=== PATIENT | female | born 1990 | race Hispanic/Latino ===

== ENCOUNTER 2019-08-10 17:49 | Emergency (ER) | payer BC ==
[~2019-08-10 17:49] MED LIST: FERS325 PO; LEVO175T9 PO
[2019-08-10] MEDS ORDERED: SODIUM CHLORIDE 0.9% 1000ML 1,000 ML IV ONE (17:50)
[2019-08-10] MEDS ORDERED: ACETAMINOPHEN EXTRA STRENGTH 500 MG TABLET ONE (19:26)
[2019-08-10 20:03] LABS: BASOPHILS % (AUTO) 0.2 % (0.0-5.0); HEMATOCRIT 41.9 % (36-48); LYMPHOCYTES % (AUTO) 24.4 % (21.0-51.0); MEAN CORPUSCULAR HGB CONC 35.6 g/dL (32.0-36.0); MEAN CORPUSCULAR VOLUME 84.5 fL (79-99); MONOCYTES % (AUTO) 7.4 % (3.0-13.0); NEUTROPHILS % (AUTO) 67.6 % (40.0-77.0); PLATELET COUNT (AUTO) 125 K/uL (130-400); RED BLOOD CELL COUNT(AUTO) 4.96 MIL/uL (4.00-5.50); RED CELL DISTRIBUTION WIDTH 12.7 % (11.0-15.5); WHITE BLOOD COUNT (AUTO) 5.7 K/uL (4.8-10.8)
[2019-08-10 20:05] LABS: APPEARANCE,URINE Clear (CLEAR); BILIRUBIN,URINE Negative (NEGATIVE); COLOR,URINE Yellow (YELLOW); GLUCOSE, URINE (UA) >=1000 mg/dL (NEGATIVE); KETONES,URINE Trace mg/dL (NEGATIVE); LEUKOCYTE ESTERASE ,URINE Negative (NEGATIVE); NITRATE,URINE Negative (NEGATIVE); OCCULT BLOOD,URINE Negative (NEGATIVE); PROTEIN,URINE POS 1+ mg/dL (NEGATIVE); UROBILINOGEN,URINE 0.2 mg/dL (0.2-1.0)
[2019-08-10 20:11] LABS: HCG,QUAL RESULT NEGATIVE (NEGATIVE)
[2019-08-10 20:13] LABS: CREATININE 0.8 mg/dL (0.5-1.5); POTASSIUM 3.7 mmol/L (3.5-5.1)
[2019-08-10 20:18] LABS: ALBUMIN 4.1 g/dL (3.5-5.0); BILIRUBIN,TOTAL 0.7 mg/dL (0.2-1.0); TOTAL PROTEIN, SERUM 8.6 g/dL (6.0-8.3)
[2019-08-10 20:49] LABS: BACTERIA,URINE Rare /HPF (None Seen); RBC,URINE 0-1 /HPF (0-1); SQUAMOUS EPITHELIAL CELL,UR Rare /HPF (0-2); WBC,URINE 0-1 /HPF (0-1)
== END 2019-08-10 23:35 | disposition left against medical advice (07) ==
LOC: EDH 17:49
DX: U07.1 COVID-19 (principal); J06.9 Acute upper respiratory infection, unspecified; E11.65 Type 2 diabetes mellitus with hyperglycemia; R94.5 Abnormal results of liver function studies; E11.9 Type 2 diabetes mellitus without complications; Z90.49 Acquired absence of other specified parts of digestive tract
CPT/HCPCS: 36415; 71045; 80053; 81001; 81025; 82948; 85025; 87804 ×2; 96360; 96361; 99284; J7030; U0003

== ENCOUNTER 2021-07-24 18:35 | Emergency (ER) | payer BC ==
[~2021-07-24] VITALS: Ht 175.3 cm; Wt 120.7 kg
[2021-07-24 18:54] LABS: BASOPHILS % (AUTO) 0.6 % (0.0-5.0); EOSINOPHILS % (AUTO) 1.4 % (0.0-8.0); HEMATOCRIT 44.8 % (36-48); LYMPHOCYTES % (AUTO) 18.2 % (21.0-51.0); MEAN CORPUSCULAR HEMOGLOBIN 29.8 pg (27.0-33.0); MEAN CORPUSCULAR HGB CONC 35.9 g/dL (32.0-36.0); MEAN CORPUSCULAR VOLUME 82.8 fL (79-99); MONOCYTES % (AUTO) 8.1 % (3.0-13.0); NEUTROPHILS % (AUTO) 71.1 % (40.0-77.0); PLATELET COUNT (AUTO) 147 K/uL (130-400); RED BLOOD CELL COUNT(AUTO) 5.41 MIL/uL (4.00-5.50); RED CELL DISTRIBUTION WIDTH 14.2 % (11.0-15.5); WHITE BLOOD COUNT (AUTO) 10.8 K/uL (4.8-10.8)
[2021-07-24] MEDS ORDERED: HYDROCODONE/ACETAMINOPHEN 10/325 MG TAB ONE (18:56)
[2021-07-24] MEDS ORDERED: 0.9%NACL 1000ML 1,000 ML IV SCH (19:00)
[2021-07-24] MEDS ORDERED: HYDROCODONE/ACETAMINOPHEN 10/325 MG TAB PO ONE (19:00)
[2021-07-24] MEDS ORDERED: FLUCONAZOLE 100 MG TAB PO ONE (19:00)
[2021-07-24 19:01] LABS: APPEARANCE,URINE Cloudy (CLEAR); BILIRUBIN,URINE Small (NEGATIVE); COLOR,URINE Dark Yellow (YELLOW); GLUCOSE, URINE (UA) >=1000 mg/dL (NEGATIVE); KETONES,URINE >=160 mg/dL (NEGATIVE); LEUKOCYTE ESTERASE ,URINE Small (NEGATIVE); NITRATE,URINE Negative (NEGATIVE); OCCULT BLOOD,URINE Nonhemolyzed Trace (NEGATIVE); PROTEIN,URINE 300 mg/dL (NEGATIVE)
[2021-07-24 19:04] LABS: HCG,QUAL RESULT NEGATIVE (NEGATIVE)
[2021-07-24 19:04] LABS: CREATININE 0.8 mg/dL (0.5-1.5); POTASSIUM 3.8 mmol/L (3.5-5.1)
[2021-07-24 19:09] LABS: ALBUMIN 4.3 g/dL (3.5-5.0); BILIRUBIN,TOTAL 2.3 mg/dL (0.2-1.0)
[2021-07-24 19:22] LABS: BACTERIA,URINE Few /HPF (None Seen)
[2021-07-24 19:28] LABS: MUCUS,URINE Few LPF (None Seen); SQUAMOUS EPITHELIAL CELL,UR Moderate /HPF (0-2)
[2021-07-24] MEDS ORDERED: FLUC150T PO (19:53)
[2021-07-24] MEDS ORDERED: METF-444 PO (19:53)
[2021-07-24] MEDS ORDERED: CLOT45CR23 VG (19:53)
[2021-07-24] MEDS ORDERED: CEPH500B PO (19:53)
[2021-07-24] MEDS ORDERED: CEFTRIAXONE 1G VIAL IVP ONE (20:00)
[2021-07-24 20:01] VITALS: BP 132/84
== END 2021-07-24 20:07 | disposition home or self-care (01) ==
LOC: EDH 18:35
DX: N39.0 Urinary tract infection, site not specified (principal); B37.3 Candidiasis of vulva and vagina; E11.65 Type 2 diabetes mellitus with hyperglycemia; Z79.84 Long term (current) use of oral hypoglycemic drugs; E66.01 Morbid (severe) obesity due to excess calories; Z68.39 Body mass index [BMI] 39.0-39.9, adult
CPT/HCPCS: 36415; 80053; 81001; 81025; 82948; 85025; 87088; 96361; 96374; 99284; J0696

== ENCOUNTER 2021-07-25 21:09 | Emergency (ER) | payer BC ==
[~2021-07-25] VITALS: Ht 175.3 cm; Wt 113.4 kg
[~2021-07-25 21:09] MED LIST changes: +CEPH500B PO; +CLOT45CR23 VG; +FLUC150T PO; +METF-444 PO
[2021-07-25 21:43] LABS: APPEARANCE,URINE Turbid (CLEAR); BILIRUBIN,URINE Moderate (NEGATIVE); COLOR,URINE Dark Yellow (YELLOW); GLUCOSE, URINE (UA) >=1000 mg/dL (NEGATIVE); KETONES,URINE >=160 mg/dL (NEGATIVE); LEUKOCYTE ESTERASE ,URINE Small (NEGATIVE); NITRATE,URINE Negative (NEGATIVE); OCCULT BLOOD,URINE Large (NEGATIVE); PH,URINE 5.5 (5.0-8.0); PROTEIN,URINE >=1000 mg/dL (NEGATIVE)
[2021-07-25 21:55] LABS: BACTERIA,URINE Few /HPF (None Seen); MUCUS,URINE Few LPF (None Seen); SQUAMOUS EPITHELIAL CELL,UR Moderate /HPF (0-2); WBC,URINE 26-50 /HPF (0-1)
[2021-07-25] MEDS ORDERED: HYDROCODONE/ACETAMINOPHEN 10/325 MG TAB PO ONE (22:00)
[2021-07-25] MEDS ORDERED: KETOROLAC 60 MG VIAL (30MG/ML) IM ONE (22:00)
[2021-07-25] MEDS ORDERED: CEFTRIAXONE 1G VIAL ONE (22:03)
[2021-07-25 22:24] VITALS: BP 137/89
[2021-07-25] MEDS ORDERED: CEFTRIAXONE 1G VIAL IVP ONE (22:30)
== END 2021-07-25 22:25 | disposition home or self-care (01) ==
LOC: EDH 21:09
DX: E11.9 Type 2 diabetes mellitus without complications (principal); N39.0 Urinary tract infection, site not specified; B37.3 Candidiasis of vulva and vagina; Z79.899 Other long term (current) drug therapy; Z79.84 Long term (current) use of oral hypoglycemic drugs; Z90.49 Acquired absence of other specified parts of digestive tract
CPT/HCPCS: 81001; 96374; 96375; 99284; J0696; J1885